=== PATIENT | female | born 1930 | race Caucasian/White ===

== ENCOUNTER 2017-04-24 12:48 | Inpatient (IN) | payer MEDICARE, OTHER ==
[~2017-04-24] VITALS: Ht 167.6 cm; Wt 64.7 kg
[2017-04-24] MEDS ORDERED: AMLO5TAB2 PO (14:46)
[2017-04-24] MEDS ORDERED: CITA10TA4 PO (14:46)
[2017-04-24] MEDS ORDERED: OXYB5TAB7 PO (14:46)
[2017-04-24] MEDS ORDERED: SODIUM CHLORIDE 0.9% 1,000ML IVBOLUS ONE (15:00)
[2017-04-24] MEDS ORDERED: CEFTAROLINE 600 MG in SODIUM CHLORIDE 0.9% 100 ML IV ONE (15:00)
[2017-04-24] MEDS ORDERED: SODIUM CHLORIDE FLUSH 10ML SYR IVF ONE (15:00)
[2017-04-24 15:57] LABS: BLOOD UREA NITROGEN 22 mg/dL (7-18)
[2017-04-24] MEDS ORDERED: SODIUM CHLORIDE FLUSH 10ML SYR IVF PRN (17:00)
[2017-04-24] MEDS ORDERED: PHARMACY INSTRUCTION MC SCH (17:00)
[2017-04-24] MEDS: CEFTAROLINE 400 MG in SODIUM CHLORIDE 0.9% 100 ML IV SCH (17:00)
[2017-04-24] MEDS ORDERED: ONDANSETRON 2MG/ML, 2ML IVPush PRN (17:30)
[2017-04-24] MEDS ORDERED: morphine SULFATE 10 MG/ML, 1ML IVPush PRN (17:30)
[2017-04-24] MEDS ORDERED: ACETAMINOPHEN 325 MG TABLET PO PRN (17:30)
[2017-04-24] MEDS ORDERED: TEMAZEPAM 15 MG CAPSULE PO PRN (17:30)
[2017-04-24 20:17] VITALS: BP 157/70
[2017-04-24] MEDS ORDERED: PHARMACY MAY ADJ FOR RENAL FX MC PRN (21:00)
[2017-04-24] MEDS: SODIUM CHLORIDE 0.9% 1,000 ML IV SCH (21:53)
[2017-04-25 01:55] VITALS: BP 156/68
[2017-04-25] MEDS: CEFTAROLINE 400 MG in SODIUM CHLORIDE 0.9% 100 ML IV SCH (04:46)
[2017-04-25 05:45] LABS: ASPARTATE AMINO TRANSFERASE 49 U/L (15-37); BLOOD UREA NITROGEN 15 mg/dL (7-18)
[2017-04-25 07:41] VITALS: BP 125/67
[2017-04-25] MEDS: HEPARIN 5,000 UNITS/ML, 1ML SQ SCH ×2 (09:00→20:02)
[2017-04-25] MEDS: SODIUM CHLORIDE 0.9% 1,000 ML IV SCH (11:54)
[2017-04-25] MEDS: CITALOPRAM 10 MG TABLET PO SCH (11:54)
[2017-04-25] MEDS: OXYBUTYNIN CHLORIDE 5 MG TABLET PO SCH (11:54)
[2017-04-25] MEDS: AMLODIPINE 5 MG TABLET PO SCH (11:54)
[2017-04-25 14:30] VITALS: BP 147/81
[2017-04-25] MEDS ORDERED: VANCOMYCIN PER PHARMACY MC PRN (14:30)
[2017-04-25] MEDS ORDERED: PHARMACOKINETIC MONITORING MC PRN (15:00)
[2017-04-25] MEDS ORDERED: VANCOMYCIN 1,300 MG in SODIUM CHLORIDE 0.9% 250 ML IV SCH (15:00)
[2017-04-25] MEDS ORDERED: PHARMACOKINETIC CONSULTATION MC ONE (15:00)
[2017-04-25] MEDS ORDERED: LIDOCAINE 1%, 20ML ONE (15:03)
[2017-04-25] MEDS: AMPICILLIN/SULBACTAM 3 GM in SODIUM CHLORIDE 0.9% 100 ML IV SCH ×2 (17:13→22:39)
[2017-04-25 18:40] VITALS: BP 110/56
[2017-04-26 02:38] VITALS: BP 114/65
[2017-04-26] MEDS: AMPICILLIN/SULBACTAM 3 GM in SODIUM CHLORIDE 0.9% 100 ML IV SCH ×4 (05:02→21:40)
[2017-04-26] MEDS: SODIUM CHLORIDE 0.9% 1,000 ML IV SCH ×3 (05:02→21:41)
[2017-04-26 06:14] LABS: BLOOD UREA NITROGEN 15 mg/dL (7-18)
[2017-04-26 08:19] VITALS: BP 114/64
[2017-04-26] MEDS: HEPARIN 5,000 UNITS/ML, 1ML SQ SCH ×2 (08:36→21:00)
[2017-04-26] MEDS: OXYBUTYNIN CHLORIDE 5 MG TABLET PO SCH (08:52)
[2017-04-26] MEDS: CITALOPRAM 10 MG TABLET PO SCH (08:52)
[2017-04-26] MEDS: AMLODIPINE 5 MG TABLET PO SCH (08:52)
[2017-04-26] MEDS ORDERED: PROPOFOL 10 MG/ML, 20ML ONE (11:10)
[2017-04-26] MEDS ORDERED: BUPIVACAINE/PF 0.5% ONE (11:29)
[2017-04-26] MEDS ORDERED: EPINEPHRINE 1 MG/ML, 1ML ONE (11:29)
[2017-04-26] MEDS ORDERED: LABETALOL 5MG/ML, 20ML IV PRN (11:30)
[2017-04-26] MEDS ORDERED: HYDROmorphone 1 MG/ML, 1ML IV PRN (11:30)
[2017-04-26] MEDS ORDERED: FENTANYL PF 100 MCG/2ML IV PRN (11:30)
[2017-04-26] MEDS ORDERED: hydrALAzine 20 MG/ML, 1ML IV PRN (11:30)
[2017-04-26] MEDS ORDERED: ONDANSETRON 2MG/ML, 2ML IVPush PRN (11:30)
[2017-04-26] MEDS ORDERED: OXYcodone 5 MG/5 ML ORAL.SOL UDC PO PRN (11:30)
[2017-04-26] MEDS ORDERED: OXYcodone 5 MG/5 ML ORAL.SOL UDC ONE (12:03)
[2017-04-26 13:26] VITALS: BP 112/52
[2017-04-26] MEDS ORDERED: OXYcodone/APAP 5/325MG TABLET PO PRN (15:00)
[2017-04-26 19:00] VITALS: BP 118/66
[2017-04-27 01:22] VITALS: BP 112/62
[2017-04-27] MEDS: AMPICILLIN/SULBACTAM 3 GM in SODIUM CHLORIDE 0.9% 100 ML IV SCH ×3 (03:56→16:30)
[2017-04-27 07:20] VITALS: BP 117/64
[2017-04-27] MEDS: CITALOPRAM 10 MG TABLET PO SCH (08:16)
[2017-04-27] MEDS: VANCOMYCIN 1,300 MG in SODIUM CHLORIDE 0.9% 250 ML IV SCH (08:16)
[2017-04-27] MEDS: OXYBUTYNIN CHLORIDE 5 MG TABLET PO SCH (08:17)
[2017-04-27] MEDS: HEPARIN 5,000 UNITS/ML, 1ML SQ SCH ×2 (08:17→20:01)
[2017-04-27] MEDS: AMLODIPINE 5 MG TABLET PO SCH (08:17)
[2017-04-27] MEDS: morphine SULFATE 10 MG/ML, 1ML IV PRN ×2 (11:18→11:36)
[2017-04-27 13:05] VITALS: BP 110/58
[2017-04-27] MEDS: SODIUM CHLORIDE 0.9% 1,000 ML IV SCH (18:12)
[2017-04-27 19:29] VITALS: BP 147/69
[2017-04-28] MEDS: AMPICILLIN/SULBACTAM 3 GM in SODIUM CHLORIDE 0.9% 100 ML IV SCH ×5 (00:36→22:42)
[2017-04-28 01:18] VITALS: BP 139/62
[2017-04-28 06:48] VITALS: BP 133/63
[2017-04-28] MEDS: AMLODIPINE 5 MG TABLET PO SCH (08:45)
[2017-04-28] MEDS: OXYBUTYNIN CHLORIDE 5 MG TABLET PO SCH (08:46)
[2017-04-28] MEDS: SODIUM CHLORIDE 0.9% 1,000 ML IV SCH (08:46)
[2017-04-28] MEDS: CITALOPRAM 10 MG TABLET PO SCH (08:46)
[2017-04-28] MEDS: HEPARIN 5,000 UNITS/ML, 1ML SQ SCH ×2 (08:46→20:34)
[2017-04-28 12:54] VITALS: BP 138/61
[2017-04-28 19:07] VITALS: BP 143/63
[2017-04-28] MEDS: SIMVASTATIN 20 MG TABLET PO SCH (20:34)
[2017-04-28] MEDS: VANCOMYCIN 1,300 MG in SODIUM CHLORIDE 0.9% 250 ML IV SCH (20:34)
[2017-04-29 01:18] VITALS: BP 137/56
[2017-04-29] MEDS: AMPICILLIN/SULBACTAM 3 GM in SODIUM CHLORIDE 0.9% 100 ML IV SCH ×3 (04:01→21:17)
[2017-04-29] MEDS: SODIUM CHLORIDE 0.9% 1,000 ML IV SCH ×2 (04:01→21:18)
[2017-04-29 07:14] VITALS: BP 145/55
[2017-04-29] MEDS: OXYBUTYNIN CHLORIDE 5 MG TABLET PO SCH (09:59)
[2017-04-29] MEDS: AMLODIPINE 5 MG TABLET PO SCH (09:59)
[2017-04-29] MEDS: CITALOPRAM 10 MG TABLET PO SCH (09:59)
[2017-04-29] MEDS: HEPARIN 5,000 UNITS/ML, 1ML SQ SCH ×2 (09:59→21:17)
[2017-04-29 13:49] VITALS: BP 133/63
[2017-04-29 18:59] VITALS: BP 122/57
[2017-04-29] MEDS: SIMVASTATIN 20 MG TABLET PO SCH (21:18)
[2017-04-30] MEDS: AMPICILLIN/SULBACTAM 3 GM in SODIUM CHLORIDE 0.9% 100 ML IV SCH ×4 (02:52→22:31)
[2017-04-30 02:55] VITALS: BP 148/57
[2017-04-30 06:25] VITALS: BP 136/67
[2017-04-30] MEDS: VANCOMYCIN 1,300 MG in SODIUM CHLORIDE 0.9% 250 ML IV SCH ×2 (08:00→10:00)
[2017-04-30] MEDS: CITALOPRAM 10 MG TABLET PO SCH (10:23)
[2017-04-30] MEDS: OXYBUTYNIN CHLORIDE 5 MG TABLET PO SCH (10:23)
[2017-04-30] MEDS: AMLODIPINE 5 MG TABLET PO SCH (10:23)
[2017-04-30] MEDS: SODIUM CHLORIDE 0.9% 1,000 ML IV SCH ×2 (10:24→22:33)
[2017-04-30] MEDS: HEPARIN 5,000 UNITS/ML, 1ML SQ SCH ×2 (10:24→22:33)
[2017-04-30 12:05] VITALS: BP 137/68
[2017-04-30 19:23] VITALS: BP 137/68
[2017-04-30] MEDS: SIMVASTATIN 20 MG TABLET PO SCH (20:40)
[2017-05-01 02:52] VITALS: BP 123/57
[2017-05-01] MEDS: AMPICILLIN/SULBACTAM 3 GM in SODIUM CHLORIDE 0.9% 100 ML IV SCH ×3 (04:21→17:00)
[2017-05-01 06:55] VITALS: BP 120/65
[2017-05-01] MEDS: HEPARIN 5,000 UNITS/ML, 1ML SQ SCH (11:00)
[2017-05-01] MEDS: VANCOMYCIN 1,300 MG in SODIUM CHLORIDE 0.9% 250 ML IV SCH (11:35)
[2017-05-01] MEDS: CITALOPRAM 10 MG TABLET PO SCH (11:35)
[2017-05-01] MEDS: AMLODIPINE 5 MG TABLET PO SCH (11:35)
[2017-05-01] MEDS: OXYBUTYNIN CHLORIDE 5 MG TABLET PO SCH (11:35)
[2017-05-01 13:00] VITALS: BP 115/67
[2017-05-01] MEDS ORDERED: AMOX500T PO (15:33)
[2017-05-01] MEDS ORDERED: LACT1CAP24 PO (15:33)
[2017-05-01] MEDS ORDERED: TRAM50TA2 PO (15:36)
[2017-05-01] MEDS: SODIUM CHLORIDE 0.9% 1,000 ML IV SCH (15:37)
== END 2017-05-01 18:26 | disposition home or self-care (01) | DRG 853 ==
LOC: ED 14:53 → EDIP 16:48 → SUATTDRO 16:56 → 3NE 19:30
PROVIDERS: ADMIT Internal Medicine; ATTEND Internal Medicine
PROC: 0J9H3ZZ Drainage of Left Lower Arm Subcutaneous Tissue and Fascia, Percutaneous Approach (ICD-10-PCS; 2017-04-25)
PROC: 0J9H0ZZ Drainage of Left Lower Arm Subcutaneous Tissue and Fascia, Open Approach (ICD-10-PCS; principal; 2017-04-26 11:15)
DX: A41.9 Sepsis, unspecified organism (principal); E43 Unspecified severe protein-calorie malnutrition; N17.0 Acute kidney failure with tubular necrosis; L03.114 Cellulitis of left upper limb; L02.414 Cutaneous abscess of left upper limb; E78.5 Hyperlipidemia, unspecified; I10 Essential (primary) hypertension; F32.9 Major depressive disorder, single episode, unspecified; R32 Unspecified urinary incontinence; Z79.899 Other long term (current) drug therapy; Z68.23 Body mass index [BMI] 23.0-23.9, adult; Z87.891 Personal history of nicotine dependence; Z86.73 Personal history of transient ischemic attack (TIA), and cerebral infarction without residual deficits
CPT/HCPCS: 36415; 76942; 80048; 80053; 80061; 80202; 82040; 82565; 82570; 83605; 84145; 84520; 85025; 87040; 87070; 87075; 87076; 87077; 87205; 96365; 96366; J0171; J0295; J0712; J1644; J2704; J3370; J3490; J2270; J7030; J7050

== ENCOUNTER → 2017-05-04 | Outpatient (CLI) | payer MEDICARE ==
[~2017-05-04] MED LIST: AMLO5TAB2 PO; AMOX500T PO; CITA10TA4 PO; LACT1CAP24 PO; OXYB5TAB7 PO; TRAM50TA2 PO
== END | disposition home or self-care (01) ==
LOC: WOUND 10:27
PROVIDERS: ATTEND Physician Assistant
DX: S51.812A Laceration without foreign body of left forearm, initial encounter (principal); L02.414 Cutaneous abscess of left upper limb; L03.114 Cellulitis of left upper limb; F02.80 Dementia in other diseases classified elsewhere, unspecified severity, without behavioral disturbance, psychotic disturbance, mood disturbance, and anxiety; I10 Essential (primary) hypertension; Z86.73 Personal history of transient ischemic attack (TIA), and cerebral infarction without residual deficits; Z87.891 Personal history of nicotine dependence; Z90.710 Acquired absence of both cervix and uterus; Y99.8 Other external cause status; Y93.89 Activity, other specified; Y92.89 Other specified places as the place of occurrence of the external cause; X58.XXXA Exposure to other specified factors, initial encounter
CPT/HCPCS: 17250; G0463; WOU0463

== ENCOUNTER → 2017-05-11 | Outpatient (CLI) | payer MEDICARE | END | disposition home or self-care (01) | LOC: WOUND 10:00 | PROVIDERS: ATTEND Physician Assistant | DX: L03.114 Cellulitis of left upper limb (principal); S41.112D Laceration without foreign body of left upper arm, subsequent encounter; L02.414 Cutaneous abscess of left upper limb; I10 Essential (primary) hypertension; F02.80 Dementia in other diseases classified elsewhere, unspecified severity, without behavioral disturbance, psychotic disturbance, mood disturbance, and anxiety; E78.5 Hyperlipidemia, unspecified; F32.9 Major depressive disorder, single episode, unspecified; Z87.891 Personal history of nicotine dependence; Z90.710 Acquired absence of both cervix and uterus; Z86.73 Personal history of transient ischemic attack (TIA), and cerebral infarction without residual deficits; X58.XXXD Exposure to other specified factors, subsequent encounter | CPT/HCPCS: 97597 ==

== ENCOUNTER → 2017-05-18 | Outpatient (CLI) | payer MEDICARE | END | disposition home or self-care (01) | LOC: WOUND 08:50 | PROVIDERS: ATTEND Physician Assistant | DX: L03.114 Cellulitis of left upper limb (principal); E78.5 Hyperlipidemia, unspecified; I10 Essential (primary) hypertension; Z79.899 Other long term (current) drug therapy; Z86.73 Personal history of transient ischemic attack (TIA), and cerebral infarction without residual deficits; Z87.891 Personal history of nicotine dependence; Z90.710 Acquired absence of both cervix and uterus; F02.80 Dementia in other diseases classified elsewhere, unspecified severity, without behavioral disturbance, psychotic disturbance, mood disturbance, and anxiety; Z68.23 Body mass index [BMI] 23.0-23.9, adult | CPT/HCPCS: 17250 ==

== ENCOUNTER → 2017-05-25 | Outpatient (CLI) | payer MEDICARE | END | disposition home or self-care (01) | LOC: WOUND 08:25 | PROVIDERS: ATTEND Physician Assistant | DX: S51.812D Laceration without foreign body of left forearm, subsequent encounter (principal); F02.80 Dementia in other diseases classified elsewhere, unspecified severity, without behavioral disturbance, psychotic disturbance, mood disturbance, and anxiety; I10 Essential (primary) hypertension; E78.5 Hyperlipidemia, unspecified; F32.9 Major depressive disorder, single episode, unspecified; Z87.891 Personal history of nicotine dependence; Z86.73 Personal history of transient ischemic attack (TIA), and cerebral infarction without residual deficits; Z90.710 Acquired absence of both cervix and uterus; X58.XXXD Exposure to other specified factors, subsequent encounter | CPT/HCPCS: 17250 ==

== ENCOUNTER → 2017-06-01 | Outpatient (CLI) | payer MEDICARE | END | disposition home or self-care (01) | LOC: WOUND 08:00 | PROVIDERS: ATTEND Physician Assistant | DX: S41.112D Laceration without foreign body of left upper arm, subsequent encounter (principal); L02.414 Cutaneous abscess of left upper limb; L03.114 Cellulitis of left upper limb; F02.80 Dementia in other diseases classified elsewhere, unspecified severity, without behavioral disturbance, psychotic disturbance, mood disturbance, and anxiety; I10 Essential (primary) hypertension; E78.5 Hyperlipidemia, unspecified; F32.9 Major depressive disorder, single episode, unspecified; Z87.891 Personal history of nicotine dependence; Z90.710 Acquired absence of both cervix and uterus; Z86.73 Personal history of transient ischemic attack (TIA), and cerebral infarction without residual deficits; X58.XXXD Exposure to other specified factors, subsequent encounter | CPT/HCPCS: 99213 ==

== ENCOUNTER 2018-10-09 14:39 | Inpatient (IN) | payer MEDICARE ==
[~2018-10-09] VITALS: Ht 167.6 cm; Wt 63.1 kg
[~2018-10-09 14:39] MED LIST changes: +AMLO-150 PO; -AMLO5TAB2 PO
[2018-10-09] MEDS ORDERED: CHOL100011 PO (14:53)
[2018-10-09] MEDS ORDERED: ASPI-515 PO (14:53)
[2018-10-09] MEDS ORDERED: MULT-6 PO (14:53)
[2018-10-09] MEDS ORDERED: SODIUM CHLORIDE FLUSH 10ML SYR IVF ONE (15:00)
[2018-10-09] MEDS ORDERED: ONDANSETRON 2MG/ML, 2ML IVPush ONE (15:00)
[2018-10-09] MEDS ORDERED: MORPHINE SULFATE 4 MG/ML, 1ML IVPush PRN ×2 (15:00→16:30)
[2018-10-09] MEDS ORDERED: ONDANSETRON 2MG/ML, 2ML ONE (15:11)
[2018-10-09] MEDS ORDERED: MORPHINE SULFATE 4 MG/ML, 1ML ONE ×2 (15:11→15:51)
[2018-10-09 15:31] LABS: INTERNATIONAL NORMALIZED RATIO 1.18 (0.93-1.1); PROTHROMBIN TIME 12.4 Seconds (9.6-11.5)
[2018-10-09 15:32] LABS: ALANINE AMINOTRANSFERASE 67 U/L (12-78); ALBUMIN 2.9 g/dL (3.4-5.0); ANION GAP 9 mmol/L (5-15); CALCIUM 8.7 mg/dL (8.5-10.1); CHLORIDE 112 mmol/L (98-107); CREATININE 1.15 mg/dL (0.55-1.02)
[2018-10-09 15:35] LABS: ALKALINE PHOSPHATASE 409 U/L (45-117); BILIRUBIN,TOTAL 2.3 mg/dL (0.2-1.0); TOTAL PROTEIN 7.1 g/dL (6.4-8.2)
[2018-10-09 15:40] LABS: MEAN CORPUSCULAR HEMOGLOBIN 30.6 pg (27.0-34.8); MEAN CORPUSCULAR HGB CONC 33.9 g/dL (32.4-35.8); MEAN CORPUSCULAR VOLUME 90.3 fL (80-100); MEAN PLATELET VOLUME 10.4 fL (7.4-10.4); PLATELET COUNT 126 x10^3/uL (130-400); RED BLOOD COUNT 3.98 x10^6/uL (3.82-5.3); RED CELL DISTRIBUTION WIDTH 16.3 % (9.6-15.2)
[2018-10-09 15:42] LABS: MD YES
[2018-10-09 15:47] LABS: BAND#(MANUAL) 1.36 x10^3/uL; BANDS%(MANUAL) 20 % (0-7); MONOS#(MANUAL) 0.14 x10^3/uL (0.3-2.7); MONOS% (MANUAL) 2 % (2-9); SEGS% (MANUAL) 78 % (42-75)
[2018-10-09 15:48] LABS: ANISOCYTOSIS 1+
[2018-10-09 15:50] LABS: <PLATELET ESTIMATE> DECREASED; LARGE PLATELETS 1+
[2018-10-09] MEDS ORDERED: SODIUM CHLORIDE 0.9% 1,000 ML IV ONE (16:05)
[2018-10-09] MEDS ORDERED: SODIUM CHLORIDE FLUSH 10ML SYR IVF PRN (16:30)
[2018-10-09 17:32] VITALS: BP 104/60
[2018-10-09] MEDS ORDERED: ONDANSETRON 2MG/ML, 2ML IVPush PRN (18:00)
[2018-10-09] MEDS ORDERED: LABETALOL 5MG/ML, 20ML IVPush PRN (18:00)
[2018-10-09] MEDS ORDERED: morphine SULFATE 10 MG/ML, 1ML IVPush PRN (18:00)
[2018-10-09] MEDS ORDERED: LIDODERM 5% PATCH TD PRN (18:00)
[2018-10-09] MEDS ORDERED: BISACODYL 10 MG SUPP PR PRN (18:00)
[2018-10-09] MEDS ORDERED: ONDANSETRON ODT 4 MG PO PRN (18:00)
[2018-10-09] MEDS ORDERED: HYDROcodone/APAP 5/325 TABLET PO PRN (18:00)
[2018-10-09] MEDS ORDERED: hydrALAzine 20 MG/ML, 1ML IVPush PRN (18:00)
[2018-10-09] MEDS: NS + 20MEQ KCL 1,000 ML IV SCH (18:44)
[2018-10-09 20:00] VITALS: BP 82/40
[2018-10-09] MEDS: DOCUSATE 100 MG CAPSULE PO SCH (22:26)
[2018-10-09] MEDS: ACETAMINOPHEN 500 MG TABLET PO SCH (22:26)
[2018-10-09 23:00] VITALS: BP 104/60
[2018-10-10 02:00] VITALS: BP 90/46
[2018-10-10] MEDS: NS + 20MEQ KCL 1,000 ML IV SCH (03:15)
[2018-10-10] MEDS: ACETAMINOPHEN 500 MG TABLET PO SCH ×4 (04:30→22:41)
[2018-10-10 05:03] LABS: ALANINE AMINOTRANSFERASE 64 U/L (12-78); ALBUMIN 2.3 g/dL (3.4-5.0); ANION GAP 6 mmol/L (5-15); CALCIUM 8.1 mg/dL (8.5-10.1); CHLORIDE 116 mmol/L (98-107); CREATININE 1.28 mg/dL (0.55-1.02)
[2018-10-10 05:04] LABS: MEAN CORPUSCULAR HEMOGLOBIN 30.7 pg (27.0-34.8); MEAN CORPUSCULAR HGB CONC 33.4 g/dL (32.4-35.8); MEAN PLATELET VOLUME 10.6 fL (7.4-10.4); PLATELET COUNT 110 x10^3/uL (130-400); RED BLOOD COUNT 3.14 x10^6/uL (3.82-5.3)
[2018-10-10 05:05] LABS: ALKALINE PHOSPHATASE 270 U/L (45-117); BILIRUBIN,TOTAL 2.7 mg/dL (0.2-1.0); TOTAL PROTEIN 5.9 g/dL (6.4-8.2)
[2018-10-10 05:27] LABS: BASOPHILS % (AUTO) 0 % (0-1); EOSINOPHILS % (AUTO) 0 % (1-7); LYMPHOCYTES # (AUTO) 0.44 x10^3/uL (1-3.4); LYMPHOCYTES % (AUTO) 3 % (22-44); MD SCAN; MONOCYTES # (AUTO) 0.75 x10^3/uL (0.2-0.8); MONOCYTES % (AUTO) 4 % (2-9); NEUTROPHILS # (AUTO) 15.95 x10^3/uL (1.8-6.8); NEUTROPHILS % (AUTO) 93 % (42-75)
[2018-10-10 08:27] VITALS: BP 102/47
[2018-10-10] MEDS: DOCUSATE 100 MG CAPSULE PO SCH ×2 (09:00→21:16)
[2018-10-10] MEDS: POLYETHYLENE GLYCOL 17 GM PACKET PO SCH (09:00)
[2018-10-10] MEDS ORDERED: SODIUM CHLORIDE 0.9%, 500ML IVBOLUS ONE (09:00)
[2018-10-10] MEDS ORDERED: MIDAZOLAM 1 MG/ML, 2ML ONE (09:28)
[2018-10-10] MEDS ORDERED: FENTANYL PF 250 MCG/5ML ONE (09:28)
[2018-10-10] MEDS ORDERED: ROCURONIUM 10MG/ML,5ML ONE (09:29)
[2018-10-10] MEDS ORDERED: HALOPERIDOL 5 MG/ML IV PRN (09:30)
[2018-10-10] MEDS ORDERED: hydrALAzine 20 MG/ML, 1ML IV PRN (09:30)
[2018-10-10] MEDS ORDERED: MEPERIDINE/PF 25MG/0.5ML IVPush PRN (09:30)
[2018-10-10] MEDS ORDERED: OXYcodone 5 MG/5 ML ORAL.SOL UDC PO PRN (09:30)
[2018-10-10] MEDS ORDERED: LABETALOL 5MG/ML, 20ML IV PRN (09:30)
[2018-10-10] MEDS ORDERED: FENTANYL PF 100 MCG/2ML IV PRN ×2 (09:30→11:00)
[2018-10-10] MEDS ORDERED: ONDANSETRON 2MG/ML, 2ML IV PRN (09:30)
[2018-10-10] MEDS ORDERED: HYDROmorphone 2 MG/ML, 1ML IVPush PRN ×2 (09:30→11:00)
[2018-10-10] MEDS ORDERED: NEOSPORIN OINT, 15GM ONE (09:35)
[2018-10-10] MEDS ORDERED: NEOSTIGMINE 1 MG/ML, 10ML ONE (10:01)
[2018-10-10] MEDS ORDERED: LIDOCAINE-MPF 2% ,5ML ONE (10:31)
[2018-10-10] MEDS ORDERED: PROPOFOL 10 MG/ML, 20ML ONE (10:31)
[2018-10-10] MEDS ORDERED: ONDANSETRON 2MG/ML, 2ML ONE (10:31)
[2018-10-10] MEDS ORDERED: DEXAMETHASONE 4 MG/ML, 1ML ONE (10:31)
[2018-10-10] MEDS: SODIUM CHLORIDE 0.9% 1,000 ML IV SCH ×2 (11:00→14:32)
[2018-10-10] MEDS: HEPARIN 5,000 UNITS/ML, 1ML SQ SCH ×2 (11:00→17:19)
[2018-10-10] MEDS ORDERED: METOPROLOL 1 MG/ML, 5ML ONE (11:18)
[2018-10-10] MEDS ORDERED: morphine SULFATE 10 MG/ML, 1ML IVPush PRN (12:00)
[2018-10-10 12:45] VITALS: BP 101/57
[2018-10-10] MEDS: CALCIUM CARBONATE 500 MG TABLET PO SCH ×2 (17:19→21:16)
[2018-10-10 19:20] VITALS: BP 91/52
[2018-10-10] MEDS: CEFAZOLIN PMX 1GM/50ML 50 ML IVPB SCH (21:16)
[2018-10-11 02:00] VITALS: BP 87/47
[2018-10-11] MEDS: HEPARIN 5,000 UNITS/ML, 1ML SQ SCH ×3 (03:00→20:45)
[2018-10-11] MEDS: CEFAZOLIN PMX 1GM/50ML 50 ML IVPB SCH (04:52)
[2018-10-11] MEDS: ACETAMINOPHEN 500 MG TABLET PO SCH ×4 (04:52→22:30)
[2018-10-11] MEDS: ALENDRONATE 10 MG TABLET PO SCH (06:10)
[2018-10-11] MEDS: ASPIRIN 81 MG TABLET EC PO SCH (06:11)
[2018-10-11 06:57] LABS: MEAN CORPUSCULAR HEMOGLOBIN 30.5 pg (27.0-34.8); MEAN CORPUSCULAR HGB CONC 32.9 g/dL (32.4-35.8); MEAN CORPUSCULAR VOLUME 92.6 fL (80-100); MEAN PLATELET VOLUME 11.1 fL (7.4-10.4); PLATELET COUNT 95 x10^3/uL (130-400); RED BLOOD COUNT 2.89 x10^6/uL (3.82-5.3); RED CELL DISTRIBUTION WIDTH 16.9 % (9.6-15.2)
[2018-10-11 07:04] LABS: ANION GAP 6 mmol/L (5-15); CHLORIDE 114 mmol/L (98-107); CREATININE 0.93 mg/dL (0.55-1.02)
[2018-10-11 07:25] LABS: BASOPHILS # (AUTO) 0.01 x10^3/uL (0-0.1); BASOPHILS % (AUTO) 0 % (0-1); EOSINOPHILS % (AUTO) 0 % (1-7); LYMPHOCYTES # (AUTO) 0.64 x10^3/uL (1-3.4); LYMPHOCYTES % (AUTO) 6 % (22-44); MD SCAN; MONOCYTES # (AUTO) 0.56 x10^3/uL (0.2-0.8); MONOCYTES % (AUTO) 5 % (2-9); NEUTROPHILS # (AUTO) 9.78 x10^3/uL (1.8-6.8); NEUTROPHILS % (AUTO) 89 % (42-75)
[2018-10-11 07:43] VITALS: BP 92/55
[2018-10-11] MEDS: CALCIUM CARBONATE 500 MG TABLET PO SCH ×3 (09:19→20:46)
[2018-10-11] MEDS: DOCUSATE 100 MG CAPSULE PO SCH ×2 (09:19→20:46)
[2018-10-11] MEDS: POLYETHYLENE GLYCOL 17 GM PACKET PO SCH (09:19)
[2018-10-11] MEDS: CHOLECALCIFEROL 1,000 UNIT TABLET PO SCH (09:19)
[2018-10-11] MEDS: MULTIVITAMIN 1 TABLET PO SCH (09:19)
[2018-10-11] MEDS: HYDROcodone/APAP 5/325 TABLET PO PRN ×2 (09:35→14:42)
[2018-10-11 14:48] VITALS: BP 125/61
[2018-10-11 20:19] VITALS: BP 95/55
[2018-10-11] MEDS: SODIUM CHLORIDE 0.9% 1,000 ML IV SCH (20:46)
[2018-10-12 01:37] VITALS: BP 103/55
[2018-10-12] MEDS: ALENDRONATE 10 MG TABLET PO SCH (05:04)
[2018-10-12] MEDS: HYDROcodone/APAP 5/325 TABLET PO PRN (05:05)
[2018-10-12] MEDS: ASPIRIN 81 MG TABLET EC PO SCH (05:05)
[2018-10-12] MEDS: ACETAMINOPHEN 500 MG TABLET PO SCH ×3 (05:05→16:51)
[2018-10-12] MEDS: HEPARIN 5,000 UNITS/ML, 1ML SQ SCH ×2 (05:05→12:12)
[2018-10-12 05:40] LABS: MEAN CORPUSCULAR HEMOGLOBIN 30.8 pg (27.0-34.8); MEAN CORPUSCULAR HGB CONC 33.3 g/dL (32.4-35.8); MEAN CORPUSCULAR VOLUME 92.3 fL (80-100); MEAN PLATELET VOLUME 10.7 fL (7.4-10.4); PLATELET COUNT 75 x10^3/uL (130-400); RED BLOOD COUNT 2.82 x10^6/uL (3.82-5.3); RED CELL DISTRIBUTION WIDTH 16.6 % (9.6-15.2)
[2018-10-12 05:46] LABS: % IRON SATURATION 7 % (20-55); IRON LEVEL 24 mcg/dL (50-170); TOTAL IRON BINDING CAPACITY 334 mcg/dL (250-450)
[2018-10-12 06:01] LABS: BASOPHILS # (AUTO) 0.02 x10^3/uL (0-0.1); BASOPHILS % (AUTO) 0 % (0-1); EOSINOPHILS # (AUTO) 0.08 x10^3/uL (0-0.4); EOSINOPHILS % (AUTO) 1 % (1-7); LYMPHOCYTES # (AUTO) 1.03 x10^3/uL (1-3.4); LYMPHOCYTES % (AUTO) 17 % (22-44); MD SCAN; MONOCYTES # (AUTO) 0.45 x10^3/uL (0.2-0.8); MONOCYTES % (AUTO) 8 % (2-9); NEUTROPHILS # (AUTO) 4.43 x10^3/uL (1.8-6.8); NEUTROPHILS % (AUTO) 74 % (42-75)
[2018-10-12] MEDS: CHOLECALCIFEROL 1,000 UNIT TABLET PO SCH (08:39)
[2018-10-12] MEDS: DOCUSATE 100 MG CAPSULE PO SCH (08:39)
[2018-10-12] MEDS: POLYETHYLENE GLYCOL 17 GM PACKET PO SCH (08:39)
[2018-10-12] MEDS: MULTIVITAMIN 1 TABLET PO SCH (08:39)
[2018-10-12] MEDS: CALCIUM CARBONATE 500 MG TABLET PO SCH ×2 (08:39→16:51)
[2018-10-12 08:43] VITALS: BP 104/52
[2018-10-12] MEDS ORDERED: GUAIFENESIN 200 MG TABLET PO SCH (09:00)
[2018-10-12] MEDS ORDERED: FERROUS SULFATE 325 MG TABLET PO SCH (09:00)
[2018-10-12] MEDS ORDERED: FERR-51 PO (10:30)
[2018-10-12] MEDS ORDERED: TRAM50TA2 PO (10:30)
[2018-10-12] MEDS ORDERED: ALEN10TA6 PO (10:30)
[2018-10-12] MEDS ORDERED: CALC-666 PO (10:30)
[2018-10-12] MEDS ORDERED: ACET500T71 PO (10:30)
[2018-10-12] MEDS ORDERED: GUAI200T3 PO (10:30)
[2018-10-12] MEDS ORDERED: ASPI-515 PO (10:41)
[2018-10-12] MEDS: SODIUM CHLORIDE 0.9% 1,000 ML IV SCH (12:13)
[2018-10-12 14:25] VITALS: BP 104/52
== END 2018-10-12 18:30 | DRG 480 ==
LOC: ED 15:08 → EDIP 16:05 → 4NOR 17:20
PROVIDERS: ADMIT Internal Medicine; ATTEND Internal Medicine
PROC: 0QS636Z Reposition Right Upper Femur with Intramedullary Internal Fixation Device, Percutaneous Approach (ICD-10-PCS; principal; 2018-10-10 10:00)
DX: S72.142A Displaced intertrochanteric fracture of left femur, initial encounter for closed fracture (principal); E43 Unspecified severe protein-calorie malnutrition; D62 Acute posthemorrhagic anemia; D69.6 Thrombocytopenia, unspecified; E78.5 Hyperlipidemia, unspecified; E87.5 Hyperkalemia; F32.9 Major depressive disorder, single episode, unspecified; I10 Essential (primary) hypertension; R32 Unspecified urinary incontinence; Z66 Do not resuscitate; K80.20 Calculus of gallbladder without cholecystitis without obstruction; Y93.89 Activity, other specified; Y92.048 Other place in boarding-house as the place of occurrence of the external cause; Y99.8 Other external cause status; I95.9 Hypotension, unspecified; Z68.22 Body mass index [BMI] 22.0-22.9, adult; Z87.891 Personal history of nicotine dependence; Z86.73 Personal history of transient ischemic attack (TIA), and cerebral infarction without residual deficits
CPT/HCPCS: 36415; 71045; 76000; 76700; 80048; 80053; 83540; 83550; 83735; 85025; 85610; 85730; 93005; 96374; 96375; C1713; G0378; J0690; J1100; J1644; J2250; J2405; J2704; J2710; J3010; J3480; J3490; J2270; J7030; J7040